=== PATIENT | female | born 1990 | race Caucasian/White ===

== ENCOUNTER 2016-06-28 17:08 | Emergency (ER) | payer SELFPAY ==
[2016-06-28 17:37] VITALS: BP 141/89; PULSE 99; RESP 18; TEMP 98; O2SAT 99
[2016-06-28] MEDS ORDERED: KETOROLAC TROMETHAMINE 30 MG/ML SOL IM ONE (17:57)
[2016-06-28] MEDS ORDERED: KETOROLAC TROMETHAMINE 30 MG/ML SOL ONE (18:12)
== END 2016-06-28 18:53 | disposition home or self-care (01) | DRG 761 ==
LOC: ED 17:08
DX: N93.9 Abnormal uterine and vaginal bleeding, unspecified (principal)
CPT/HCPCS: 84703; 99282; J1885

== ENCOUNTER 2018-07-23 17:57 | Emergency (ER) | payer SELFPAY ==
[2018-07-23 18:22] LABS: APPEARANCE,URINE Clear; BILIRUBIN,URINE NEGATIVE (NEGATIVE); COLOR,URINE Yellow; GLUCOSE, URINE (UA) NEGATIVE (NEGATIVE); KETONES,URINE TRACE (NEGATIVE); LEUKOCYTE ESTERASE ,URINE NEGATIVE (NEGATIVE); NITRATE,URINE NEGATIVE (NEGATIVE); OCCULT BLOOD,URINE NEGATIVE (NEG-TRACE); PH,URINE 5.5; UROBILINOGEN,URINE 0.2 (0.2-1.0 EU)
[2018-07-23 18:34] LABS: RBC,URINE NEG (0-3AV/HPF)
[2018-07-23 18:35] LABS: BACTERIA TRACE (< 1+); CRYSTALS NEGATIVE (0-3 AVE/HPF); EPITHELIAL CELLS 0-2 (SQUAMOUS)
[2018-07-23 19:25] VITALS: BP 132/89; PULSE 74; RESP 16; TEMP 98.2; O2SAT 100
== END 2018-07-23 20:47 | disposition home or self-care (01) | DRG 759 ==
LOC: ED 17:57
DX: B37.3 Candidiasis of vulva and vagina (principal)
CPT/HCPCS: 81001; 87210; 99282